=== PATIENT | female | born 1990 | race African-American/Black ===

== ENCOUNTER 2021-08-11 10:36 | Emergency (ER) | payer OTHER ==
[2021-08-11 10:45] VITALS: BP 111/67
[2021-08-11 11:31] LABS: HCG UR QUAL NEGATIVE
--- NOTE | 2021-08-11 12:17 | ED Physician Documentation ---
History of Present Illness - Stated complaint Stated Complaint: FEMALE - Chief complaint Chief Complaint: Abd Pain - History obtained from History obtained from: Patient - History of Present Illness Timing: How many days ago (2) Pain level max: 0 Pain level now: 0 - Additonal information Additional information: 30-year-old female states that she has had a new sexual partner for the past month. She states that today she noted a foul odor from her vagina. She states that there is no itching or pain. She states that the discharge was clear. Has never had similar symptoms previously. Does not have any STD exposure that she is aware of. Nothing makes it better or worse. No pain with urination. No a bdominal pain. No back pain. Review of Systems Constitutional: denies: Fever, Chills Cardiac: denies: Chest pain / pressure Respiratory: denies: Cough GI: denies: Nausea, Vomiting : denies: Dysuria, Frequency, Hesitancy, Now EGA Skin: denies: Rash PD PAST MEDICAL HISTORY - Past Medical History Past Medical History: Yes Cardiovascular: None Respiratory: None Neuro: None Endocrine/Autoimmune: None GI: None ANALYTICAL LAB ANALYST: None : None HEENT: None Psych: None Musculoskeletal: None Derm: None - Past Surgical History Past Surgical History: No - Present Medications Home Medications: Ambulatory Orders Medication Instructions Recorded Confirmed metroNIDAZOLE [Flagyl] 500 mg PO BID 7 Days #14 tablet 08/11/21 - Allergies Allergies/Adverse Reactions: Allergies Allergy/AdvReac Type Severity Reaction Status Date / Time No Known Drug Allergies Allergy Verified 08/11/21 10:40 - Social History Does the pt smoke?: No Smoking Status: Never smoker Does the pt drink ETOH?: Yes Does the pt have substance abuse?: No - Immunizations Immunizations are current?: Yes PD ED PE NORMAL - Vitals Vital signs reviewed: Yes - General General: Alert and oriented X 3, No acute distress, Well developed/nourished - HEENT HEENT: Moist mucous membranes - Neck Neck: Supple, no meningeal sign - Cardiac Cardiac: RRR, Strong equal pulses - Respiratory Respiratory: No respiratory distress, Clear bilaterally - Abdomen Abdomen: Soft, Non tender, Non distended - Female Female : Pt declined - Back Back: No CVA TTP - Derm Derm: Warm and dry - Neuro Neuro: Alert and oriented X 3 - Psych Psych: Normal mood, Normal affect Results - Vitals Vitals: Vital Signs - 24 hr 08/11/21 10:41 Temperature 36 C L Heart Rate 88 Respiratory 16 Rate Blood Pressure 111/67 O2 Saturation 99 Oxygen O2 Source Room air - Labs Labs: Laboratory Tests 08/11/21 08/11/21 11:08 11:08 Urine HCG, Qual NEGATIVE C. glabrata (PCR) NEGATIVE C. krusei (PCR) NEGATIVE Aline species DNA NEGATIVE T. vaginalis (PCR) NEGATIVE Bact Vaginosis (PCR) POSITIVE A PD MEDICAL DECISION MAKING - ED course Complexity details: reviewed results, re-evaluated patient, considered differential, d/w patient ED course: Patient declines pelvic exam. When her test came back, she is positive for bacterial vaginitis. Flagyl was sent to the pharmacy for her. Patient counseled regarding signs and symptoms for which I believe and urgent re- evaluation would be necessary. Patient with good understanding of and agreement to plan and is comfortable going home at this time This document was made in part using voice recognition software. While efforts are made to proofread this document, sound alike and grammatical errors may occur. Departure - Departure Disposition: 01 Home, Self Care Clinical Impression: Vaginal discharge, Bacterial vaginitis Condition: Good Instructions: ED Vaginosis Bacterial Follow-Up: your,doctor as needed [Other] Prescriptions: metroNIDAZOLE [Flagyl] 500 mg PO BID 7 Days #14 tablet Comments: Your swabs should be back later this afternoon. Please call around 430-5pm if you have not heard from me. [facility] Discharge Date/Time: 08/11/21 13:00
[2021-08-11 13:41] LABS: BACTERIAL VAGINOSIS DNA POSITIVE (NEGATIVE); CANDIDA GLABRATA DNA NEGATIVE (NEGATIVE); CANDIDA GROUP DNA NEGATIVE (NEGATIVE); CANDIDA KRUSEI DNA NEGATIVE (NEGATIVE); TRICHOMONAS VAGINALIS DNA NEGATIVE (NEGATIVE)
[2021-08-11 20:32] LABS: CHLAMYDIA TRACHOMATIS DNA NEGATIVE (NEGATIVE); NEISSERIA GONORRHOEAE DNA NEGATIVE (NEGATIVE); TRICHOMONAS VAGINALIS DNA NEGATIVE (NEGATIVE)
== END 2021-08-11 13:00 | disposition home or self-care (01) ==
LOC: ED 10:36
DX: N76.0 Acute vaginitis (principal)
CPT/HCPCS: 81025; 87491; 87591; 87661; 87801; 99283; 99284

== ENCOUNTER 2021-09-19 15:29 | Emergency (ER) | payer OTHER ==
[2021-09-19 15:54] VITALS: BP 112/61
[2021-09-19 17:27] LABS: BILIRUBIN,URINE NEGATIVE (NEGATIVE); GLUCOSE, URINE (UA) NEGATIVE (NEGATIVE); KETONES,URINE (UA) NEGATIVE (NEGATIVE); LEUKOCYTE ESTERASE, URINE NEGATIVE (NEGATIVE); NITRITE,URINE NEGATIVE (NEGATIVE); OCCULT BLOOD,URINE NEGATIVE (NEGATIVE); PROTEIN,URINE NEGATIVE (NEGATIVE); UROBILINOGEN,URINE 0.2 (NORMAL) E.U./dL (NORMAL)
[2021-09-19 17:29] LABS: CLARITY,URINE CLEAR (CLEAR)
[2021-09-19 17:30] LABS: HCG UR QUAL NEGATIVE
[2021-09-19] MEDS ORDERED: FLUCONAZOLE 100 MG TABLET PO STA (19:14)
--- NOTE | 2021-09-19 19:17 | ED Physician Documentation ---
PD HPI FEMALE - Stated complaint Stated Complaint: FEMALE - Chief complaint Chief Complaint: General - History obtained from History obtained from: Patient - History of Present Illness Timing - onset: How many weeks ago (5) Timing - duration: Weeks (5) Timing - details: Gradual onset, Still present, Waxing and waning Associated symptoms: Other (vaginal itching) Contributing factors: Sexually active Similar symptoms before: Diagnosis (yeast vaginitis and BV.) Recently seen: Clinic, Emergency Dept - Additional information Additional information: 30-year-old female reports that for the past 5 weeks she has had an issue with vaginal discharge and itching. She was seen in the emerge department treated for bacterial vaginosis from a self swab that showed this on PCR. She was administered Flagyl. Following that she developed itching and was administered cream she did not have much luck with that and subsequently was administered Diflucan she had some improvement in her symptoms had recurrence of her symptoms and she has had a second round of treatment with similar results. She is coming to the emergency department today asking to be examined as she has not had an examination done and she continues to have symptoms. She does have a picket fence sign. Review of Systems Constitutional: denies: Fever Respiratory: denies: Cough GI: denies: Vomiting : reports: Other (vaginal itching without foul smell). denies: Dysuria, Frequency, Discharge Skin: denies: Rash PD PAST MEDICAL HISTORY - Past Medical History Past Medical History: No Cardiovascular: None Respiratory: None Neuro: None Endocrine/Autoimmune: None GI: None INSURANCE FOLLOW UP SPECIALIST: None : None HEENT: None Psych: None Musculoskeletal: None Derm: None - Past Surgical History Past Surgical History: No - Present Medications Home Medications: Ambulatory Orders Medication Instructions Recorded Confirmed metroNIDAZOLE [Flagyl] 500 mg PO BID 7 Days #14 tablet 08/11/21 Fluconazole [Diflucan] 1 tablet PO ONCE 1 Days #2 tablet 09/19/21 - Allergies Allergies/Adverse Reactions: Allergies Allergy/AdvReac Type Severity Reaction Status Date / Time No Known Drug Allergies Allergy Verified 09/19/21 15:52 - Social History Does the pt smoke?: No Smoking Status: Never smoker Does the pt drink ETOH?: Yes Does the pt have substance abuse?: No - Immunizations Immunizations are current?: Yes - POLST Patient has POLST: No PD ED PE NORMAL - Vitals Vital signs reviewed: Yes (normal ) - General General: Alert and oriented X 3, Well developed/nourished - HEENT HEENT: Atraumatic, PERRL, EOMI - Respiratory Respiratory: No respiratory distress - Female Female : Health Service Worker present (Funmilayo ), Other (milky white discharge is scant. minimal erythema. No cervical motion tenderness. samples taken for PCR.) - Back Back: No CVA TTP, No spinal TTP - Derm Derm: Normal color, Warm and dry, No rash - Extremities Extremities: No deformity, No calf tenderness / cord - Neuro Neuro: Alert and oriented X 3, information technology analyst 2-12 intact, No motor deficit, No sensory deficit, Normal speech Eye Opening: Spontaneous Motor: Obeys Commands Verbal: Oriented GCS Score: 15 - Psych Psych: Normal mood, Normal affect Results - Vitals Vitals: Vital Signs - 24 hr 09/19/21 15:52 Temperature 36.5 C Heart Rate 82 Respiratory 16 Rate Blood Pressure 112/61 O2 Saturation 100 Oxygen O2 Source Room air - Labs Labs: Laboratory Tests 09/19/21 17:20 Urine Color YELLOW Urine Clarity CLEAR Urine pH 6.0 Ur Specific [place] 1.025 Urine Protein NEGATIVE Urine Glucose (UA) NEGATIVE Urine Ketones NEGATIVE Urine Occult Blood NEGATIVE Urine Nitrite NEGATIVE Urine Bilirubin NEGATIVE Urine Urobilinogen 0.2 (NORMAL) Ur Leukocyte Esterase NEGATIVE Ur Microscopic Review NOT INDICATED Urine Culture Comments NOT INDICATED Urine HCG, Qual NEGATIVE PD MEDICAL DECISION MAKING - ED course Complexity details: considered differential, d/w patient ED course: 30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 She has had failure of this treatment and we are giving her a second dose to be taken in 3 days time. Departure - Departure Disposition: 01 Home, Self Care Clinical Impression: Yeast vaginitis Condition: Stable Instructions: ED Vaginal Infec Fungal Aline Follow-Up: [facility] [Provider Group] Prescriptions: Fluconazole [Diflucan] 1 tablet PO ONCE 1 Days #2 tablet Discharge Date/Time: 09/19/21 19:32
[2021-09-19 22:00] LABS: BACTERIAL VAGINOSIS DNA POSITIVE (NEGATIVE); CANDIDA GLABRATA DNA NEGATIVE (NEGATIVE); CANDIDA GROUP DNA POSITIVE (NEGATIVE); CANDIDA KRUSEI DNA NEGATIVE (NEGATIVE); TRICHOMONAS VAGINALIS DNA NEGATIVE (NEGATIVE)
== END 2021-09-19 19:32 | disposition home or self-care (01) ==
LOC: ED 15:29
DX: B37.3 Candidiasis of vulva and vagina (principal)
CPT/HCPCS: 81003; 81025; 87481; 87661; 87801; 99283; A9270; 81001; 87086